=== PATIENT | female | born 1955 | race Caucasian/White ===

== ENCOUNTER 2018-03-11 21:05 | Emergency (ER) | payer MEDICAID ==
[2018-03-11] MEDS: METHOCARBAMOL 750 MG TAB PO (22:37)
[2018-03-11] MEDS: DEXAMETHASONE 10 MG/ML 1 ML INJ IM (22:37)
[2018-03-11] MEDS: KETOROLAC 30 MG INJ IM (22:38)
== END 2018-03-11 23:38 | disposition home or self-care (01) ==
LOC: FTE 21:05
DX: M54.5 Low back pain (principal); I10 Essential (primary) hypertension; M25.561 Pain in right knee; Z79.82 Long term (current) use of aspirin
CPT/HCPCS: 72100; 73562; 93971; 96372; 99285-25

== ENCOUNTER → 2018-09-13 | Emergency (ER) | payer MEDICAID ==
[2018-09-13] MEDS: DIPHENHYDRAMINE 25 MG CAP PO (08:55)
== END | disposition home or self-care (01) ==
LOC: FTE 07:45
DX: S80.862A Insect bite (nonvenomous), left lower leg, initial encounter (principal); S80.861A Insect bite (nonvenomous), right lower leg, initial encounter; S40.861A Insect bite (nonvenomous) of right upper arm, initial encounter; S40.862A Insect bite (nonvenomous) of left upper arm, initial encounter; I10 Essential (primary) hypertension; W57.XXXA Bitten or stung by nonvenomous insect and other nonvenomous arthropods, initial encounter; Y92.9 Unspecified place or not applicable
CPT/HCPCS: 99283; Z7610